=== PATIENT | male | born 2000 | race Caucasian/White ===

== ENCOUNTER 2018-01-27 22:11 | Emergency (ER) | payer MEDICAID ==
[~2018-01-27] VITALS: Ht 170.2 cm; Wt 54.1 kg
[2018-01-27 22:17] VITALS: Ht 170.2 cm; Wt 54.1 kg
[2018-01-27] MEDS ORDERED: PROZAC40 MG PO (22:18)
[2018-01-27 22:59] VITALS: BP 132/81
== END 2018-01-27 22:59 | disposition home or self-care (01) ==
LOC: D.ER 22:11
DX: F41.9 Anxiety disorder, unspecified (principal); Y04.2XXA Assault by strike against or bumped into by another person, initial encounter; Y93.89 Activity, other specified; Y92.89 Other specified places as the place of occurrence of the external cause

== ENCOUNTER 2018-02-06 23:01 | Emergency (ER) | payer MEDICAID ==
[~2018-02-06] VITALS: Ht 170.2 cm; Wt 52.3 kg
[~2018-02-06 23:01] MED LIST: PROZAC40 MG PO
[2018-02-06 23:11] VITALS: Ht 170.2 cm; Wt 52.3 kg
[2018-02-06 23:26] LABS: BASOPHILS 0.3 % (0-2); EOSINOPHILS 1.4 % (0-7); HEMATOCRIT 48.5 % (42.0-54.0); HEMOGLOBIN 16.9 g/dL (13.5-17.5); IMMATURE GRANULOCYTES 0.2 % (0-5); LYMPHOCYTES 26.4 % (15-50); MCH 29.6 pg (26.0-34.0); MCHC 34.8 g/dL (31.0-37.0); MCV 85.1 fL (80.0-100.0); MEAN PLATELET VOLUME 8.7 fL (7.4-10.4); MONOCYTES 11.1 % (2-11); NEUTROPHILS 60.6 % (40-80); PLATELET COUNT 318 10x3/uL (130-400); RDW 12.7 % (11.5-14.5); WBC 9.4 10x3/uL (4.8-10.8)
[2018-02-06 23:28] LABS: APPEARANCE CLEAR (CLEAR); BILIRUBIN NEGATIVE (NEGATIVE); COLOR YELLOW (YELLOW); GLUCOSE NEGATIVE (NEGATIVE); KETONE NEGATIVE (NEGATIVE); NITRITE NEGATIVE (NEGATIVE); PROTEIN NEGATIVE (NEGATIVE); SPECIFIC GRAVITY 1.015 (1.005-1.020); UROBILINOGEN NORMAL (NORMAL)
[2018-02-06 23:34] LABS: UDS - AMPHET NEGATIVE QUAL (NEGATIVE); UDS - BARB NEGATIVE QUAL (NEGATIVE); UDS - BENZO NEGATIVE QUAL (NEGATIVE); UDS - COCAINE NEGATIVE QUAL (NEGATIVE); UDS - OPIATE NEGATIVE QUAL (NEGATIVE); UDS - PCP NEGATIVE QUAL (NEGATIVE); UDS - THC NEGATIVE QUAL (NEGATIVE)
[2018-02-06 23:40] LABS: ALBUMIN 4.5 g/dL (3.4-5.0); ALKALINE PHOSPHATASE 87 U/L (46-116); ALT (SGPT) 31 U/L (10-68); BILIRUBIN - TOTAL 0.44 mg/dL (0.2-1.3); CALC OSMOLALITY 285 mosm/kg (275-300); CALCIUM 9.6 mg/dL (8.5-10.1); CARBON DIOXIDE 33.3 mmol/L (21.0-32.0); CHLORIDE - SERUM 102 mmol/L (98-107); CREATININE - SERUM 1.2 mg/dL (0.6-1.3); GLUCOSE 82 mg/dL (74-106); POTASSIUM - SERUM 3.6 mmol/L (3.5-5.1); PROTEIN - SERUM 8.5 g/dL (6.4-8.2); SODIUM 143 mmol/L (136-145); UREA NITROGEN 19 mg/dL (7-18); eGFR NON AFRICAN AMERICAN 83 mL/min (90-120)
[2018-02-07 12:41] VITALS: BP 121/74
== END 2018-02-07 13:56 ==
LOC: D.ER 23:01
PROVIDERS: Family Medicine
DX: T14.91XA Suicide attempt, initial encounter (principal); T43.222A Poisoning by selective serotonin reuptake inhibitors, intentional self-harm, initial encounter; Y92.019 Unspecified place in single-family (private) house as the place of occurrence of the external cause; Y93.89 Activity, other specified; F17.200 Nicotine dependence, unspecified, uncomplicated